=== PATIENT | male | born 1955 | race Caucasian/White ===

== ENCOUNTER 2021-08-07 07:21 | Day surgery (SDC) | payer OTHER ==
[2021-08-04 13:46] LABS: Absolute Lymphocytes (CBC) 2.1 K/uL (0.7-4.9); Lymphocytes % 40.7 % (15.3-44.8); MPV 7.9 fL (7.6-11.3); RBC Red Blood Cell Count 5.13 M/uL (4.33-5.43)
[2021-08-04 13:59] LABS: Albumin 4.2 g/dL (3.4-5.0); Bilirubin Direct 0.1 mg/dL (0-0.2); Bilirubin Total 0.5 mg/dL (0.2-1.0); Protein, Total 7.4 g/dL (6.4-8.2)
--- NOTE | 2021-08-04 14:06 | RAD REPORT ---
EXAM DESCRIPTION: RAD - Chest Pa And Lat (2 Views) - 08/04/2021 1:53 pm CLINICAL HISTORY: pre op pending cholecystectomy COMPARISON: No comparisons FINDINGS: Lines: None. Lungs: No evidence of edema or pneumonia. Pleural: No significant pleural effusions or pneumothorax. Cardiac: The heart size is within normal limits. Bones: No acute fractures. Other: IMPRESSION: No acute cardiopulmonary disease.
[2021-08-07] MEDS ORDERED: Ringers Lactate 1,000 ML IV ONE (07:39)
[2021-08-07] MEDS ORDERED: CEFOXITIN SODIUM 1 GM/VIAL ONE (07:39)
[2021-08-07] MEDS ORDERED: ROCURONIUM 50 MG/5 ML VIAL IV ONE (08:15)
[2021-08-07] MEDS ORDERED: MIDAZOLAM HCL 2 MG/2 ML INJ ONE (08:15)
[2021-08-07] MEDS ORDERED: FENTANYL CITR 100 MCG/2 ML ONE (08:15)
[2021-08-07] MEDS ORDERED: LIDOCAINE 1% MPF 5 ML VIAL ONE (08:15)
[2021-08-07] MEDS ORDERED: propofoL 200 MG/20 ML VIAL IV ONE (08:15)
[2021-08-07] MEDS ORDERED: dexAMETHasone 10 MG/ML VIAL ONE (08:39)
[2021-08-07] MEDS ORDERED: KETOROLAC 30 MG/ML INJ ONE (08:39)
[2021-08-07] MEDS ORDERED: ONDANSETRON 4 MG/2 ML VIAL ONE (08:40)
[2021-08-07] MEDS ORDERED: GLYCOPYRROLATE 0.2 MG/ML SYR ONE ×2 (08:52)
[2021-08-07] MEDS ORDERED: NEOSTIGMINE 1 MG/ML -5 ML ONE (08:52)
--- NOTE | 2021-08-07 09:05 | P.BOP ---
Preoperative diagnosis: RUQ abd pain, cholecystitis, biliary dyskinesia, umbilical hernia Postoperative diagnosis: same Primary procedure: 1. Laparoscopic cholecystectomy Secondary procedure: 2. Umbilical hernia repair Estimated blood loss: <10cc Specimen: GN, Sac Findings: as above Complications: None Transferred to: Recovery Room Condition: Good
[2021-08-07] MEDS: HYDROMORPHONE HCL 1 MG/ML INJ ONE ×4 (09:26→09:48)
[2021-08-07] MEDS ORDERED: PROMETHAZINE INJ 25 MG/ML AMP ONE (09:31)
[2021-08-07 09:43] VITALS: O2SAT 100
--- NOTE | 2021-08-07 10:35 | OP ---
Date of Procedure: 08/07/2021 Surgeon: Jasper Thakkar MD Preoperative Diagnoses: Right upper quadrant abdominal pain, cholecystitis, biliary dyskinesia, umbi lical hernia. Postoperative Diagnoses: Right upper quadrant abdominal pain, cholecystitis, biliary dyskinesia, umb ilical hernia. Procedures: Laparoscopic cholecystectomy, umbilical hernia repair. Specimen: Gallbladder and hernia sac. Finding: Inflammation of the gallbladder consistent with acute cholecystitis. Also, the patient has a history of biliary dyskinesia and also the patient has incarcerated omentum and umbilical hernia. Complications: None. Estimated Blood Loss: Less than 10 mL. Indication: This is the case of a 66-year-old patient, who comes to us with epigastric right upper q uadrant pain, diagnosed with a biliary dyskinesia, umbilical hernia, right upper quadrant abdominal p ain. The benefits, alternatives, and risks of laparoscopic, possible open cholecystectomy and umbili eric hernia repair fully explained, which include, but not limited to infection, bleeding, damage to a djacent structures, anesthesia complication, choledocholithiasis, bile leak, recurrence of the hernia , Mi and even . He also understands this may not relieve any symptoms. He might need more than one surgical intervention. He understood, signed a consent. Procedure In Detail: The patient was brought to the operating room, placed in supine position. Anes thesia was done without complication. Abdominal area was prepped and draped in the usual sterile fas hion. Marcaine 0.5% was injected for local anesthetic followed by sharp incision of the skin in the supraumbilical region with the hernia was located. An incision was made in that area. Hernia sac wa s identified, removed from umbilical skin. Opened the hernia sac, noticed incarcerated omentum with some adhesions that were carefully removed. The omentum was retracted back into the gallbladder afte r fully inspecting to make sure that is still viable. Hernia sac was removed. Fascial edges were cl eaned. We have to extend the fascial edges to be able to accommodate Heriberto trocar. Vicryl #1 place d inside the fascia. Heriberto trocar was carefully introduced. Pneumoperitoneum was obtained. I plac ed 3 more trocars, 5 mm each one of them, 1 in the epigastric area and 2 in the right upper quadrant under direct visualization. This allowed me to put a grasper in the fundus of the gallbladder, ano er grasper in the infundibulum retracting the gallbladder in the inferolateral fashion, exposing the triangle of Calot, and obtaining critical view. Cystic duct and cystic artery were clearly isolated, free circumferentially and a connection between those and the gallbladder were clearly identified. I proceeded to ligate those by using at least 3 clips proximal, 1 clip distal, ligation in the middle . Same was done with the cystic artery. No bile leak. No bleeding. The gallbladder was removed fr om the liver using Bovie cauterizer and removed from abdominal cavity using EndoCatch through the umb ilical incision. The area was inspected once again. No bile leak. No bleeding. At that moment, I proceeded to remove the trocars under direct vision. Deflated pneumoperitoneum, closed the fascia wi th #1 Vicryl. Closed the umbilical hernia with #1 Vicryl. Irrigated subcutaneous tissue, closed ema t with 3-0 chromic and the skin in a subcuticular fashion with 3-0 chromic and Steri-Strips on top. Sponge count, instrument counts correct. The patient tolerated the procedure well. The patient was sent to recovery in stable condition. ORVILLE/DOUGLAS Voice ID: [id number] Report ID: [id number]
--- NOTE | 2021-08-07 10:35 | DS ---
Diagnoses: Acute cholecystitis, biliary dyskinesia, right upper quadrant abdominal pain, umbilical h ernia. Procedures: Laparoscopic cholecystectomy and repair of umbilical hernia. Disposition: Home. Activity: As tolerated. No heavy lifting. Plan: Follow up in my office in 1 week. Call for appointment at [phone]. Keep area dry for 48 yuridia rs, then may shower. Keep Steri-Strips intact. Medications: While in the hospital, Tylenol No.3 q.4 hours p.r.n. pain. ORVILLE/DOUGLAS Voice ID: [id number] Report ID: [id number]
[2021-08-07 11:25] VITALS: BP 152/75; TEMP 97.6
== END 2021-08-07 11:22 | disposition home or self-care (01) ==
LOC: OR 07:21
PROVIDERS: ATTEND Surgery
PROC: 0FT44ZZ Resection of Gallbladder, Percutaneous Endoscopic Approach (ICD-10-PCS; 2021-08-07)
PROC: 0WQF4ZZ Repair Abdominal Wall, Percutaneous Endoscopic Approach (ICD-10-PCS; principal; 2021-08-07 08:30)
DX: K81.1 Chronic cholecystitis (principal); K42.9 Umbilical hernia without obstruction or gangrene; K82.8 Other specified diseases of gallbladder; R10.11 Right upper quadrant pain; Z20.822 Contact with and (suspected) exposure to COVID-19
CPT/HCPCS: 93005; 85025; 80048; 36415; 82150; 80076; 88302; 88304; 83690; 71046; 49652; 47562; U0003; J2704; J2550; J2250; J3010; J1100; J1170 ×2; J2710; J7120; J0694; J2405